=== PATIENT | female | born 1970 | race Two or more races ===

== ENCOUNTER 2024-01-31 11:59 | Emergency (ER) | payer OTHER, SELFPAY ==
[2024-01-31 12:00] VITALS: BMI 21.2
[2024-01-31 12:02] VITALS: BP 141/95
--- NOTE | 2024-01-31 12:11 | ED.GENMED ---
History of Present Illness
General
Chief Complaint: Chest Pain
Source: patient
Exam Limitations: none
Time Seen by Provider: 01/31/24 12:09
Nursing documentation reviewed up to this point in time: agreed with
Travel History
Have you had any contact with someone who has COVID-19?: No
Do you have any symptoms of coronavirus? Fever > 100 degrees, chills, cough, shortness of breath, sore throat, loss of taste or smell, muscle aches, or headache?: No
History of Present Illness
History of Present Illness:
54 yo female with hx hypertropic cardiomyopathy (mild septal hypertrophy on her last echocardiogram), presents stating:
She tested Covid + 9 days ago when she had fever 102, aches, congestion started same day. Took Paxlovid, finished it 4 days ago. [place] better then, started walking her usual 2 miles a day, going to gym, etc.
Two days ago started feeling fatigued but continued her activities
Yesterday again, intermittent fatigue associated with fast heart rate on apple watch and pulse ox and mid non radiating chest tightness when doing any activity. HR as high as 115 at time with exertion, HR 50's at rest.
Today emptying armature rewinder HR up to 130 and felt mild SOB with the mid chest pressure.
Saw PCP RESOURCES REPRESENTATIVE in office today, 11 am told her EKG looked different than last one and sent here for eval.
States 'very mild' chest tightness now, no other symptoms.
Denies n/v/abd pain, dizziness, weakness.
Past History
Past History
ED Past Medical History: Other (hypertropic cardiomyopathy)
ED Past Surgical History:
Social History
Tobacco: Non-smoker
Alcohol: None
Personal:
Living: with family
Employment: Employed
Review of Systems
Review of Systems
Allergies reviewed?: Yes
All Other Systems: ROS reviewed and negative except as documented in HPI and ROS
Constitutional: Reports fatigue; Denies fever or chills
EENT: Denies sore throat
Respiratory: Denies cough or trouble breathing (mild SOB at times when HR increases)
Cardiac: Reports chest pain and palpitations (fast HR on apple watch, pulse ox, does not feel palpitations.); Denies diaphoresis or syncope
ABD/GI: Denies abdominal pain, nausea or vomiting
: Denies dysuria, frequency or urgency
Musculoskeletal: Reports no symptoms
Skin: Reports no symptoms
Neurological: Reports no symptoms
Phy Exam
Physical Exam
Physical Exam:
GENERAL: No acute distress. A&Ox3.
CONSTITUTIONAL: Afebrile.
EYES: clear, conjunctivae normal
ENMT: moist mucus membranes, Pharynx nl
RESPIRATORY: Regular respirations, nonlabored, lungs clear.
CARDIOVASCULAR: Regular rate and rhythm, no murmurs, no rubs.
GI: Soft, nontender, normal BS
MUSCULOSKELETAL: Moves with ease. Well perfused.
SKIN: Warm, dry, normal
PSYCH: Normal mood and affect. Well kept, interactive and appropriate
NEUROLOGIC: Awake, alert and oriented. No focal neurological deficits
Scores
Heart Score for Chest Pain Patients
STEMI patient?: Not applicable
Course
Orders/Labs/Results
Orders:
Orders
01/31/24 12:06
Electrocardiogram (*1) Urgent
Reason for Study: Chest Pain
EKG- Treatment ONCE
01/31/24 13:09
Complete Blood Count/With Diff Urgent
Comprehensive Metabolic Panel Urgent
D-Dimer Urgent
Free T4 Urgent
TSH Reflex To Free T4 Urgent
Troponin I Urgent
01/31/24 15:12
CT Chest Pe Study Urgent
Comment:
Reason For Exam: tachycardia, sob on exertion
Abnormal Lab Results
01/31/24
13:09
RBC 5.55 H 10^6/uL
(4.20-5.40)
Hgb 16.9 H g/dL
(12.0-16.0)
RDW 11.3 L %
(11.5-14.5)
Abs Immat Gran (auto) 0.1 H 10^3/uL
(0-0.05)
Immature Gran % 0.7 H %
(0-0.5)
Lymphocytes % 19.6 L %
(20.5-51.1)
Sodium 126 L mmol/L
(135-145)
Chloride 97 L mmol/L
(98-107)
Carbon Dioxide 21 L mmol/L
(22-30)
Glucose 101 H mg/dl
(70-99)
Calcium 11.0 H mg/dl
(8.4-10.2)
Total Protein 8.9 H g/dl
(6.3-8.2)
Albumin 5.1 H g/dl
(3.5-5.0)
TSH (Reflex) 0.36 L uIU/ml
(0.47-4.68)
01/31/24 13:09
01/31/24 13:09
Vital Signs
Initial and Last Documented VS:
Initial Vital Signs
Temp Pulse Resp BP Pulse Ox
98.9 F 103 16 141/95 98
01/31/24 12:02 01/31/24 12:02 01/31/24 12:02 01/31/24 12:02 01/31/24 12:02
Last Documented Vital Signs
Temp Pulse Resp BP Pulse Ox
98.9 F 90 18 120/64 97
01/31/24 12:02 01/31/24 18:11 01/31/24 18:11 01/31/24 18:11 01/31/24 18:11
MDM/Problems Addressed
Differential Diagnosis Includes:
ACS, hyperthyroidism, pericarditis
MDM/Problems Addressed:
54 yo female with hx hypertropic cardiomyopathy (mild septal hypertrophy on her last echocardiogram), presents stating:
She tested Covid + 9 days ago when she had fever 102, aches, congestion started same day. Took Paxlovid, finished it 4 days ago. [place] better then, started walking her usual 2 miles a day, going to gym, etc.
Two days ago started feeling fatigued but continued her activities
Yesterday again, intermittent fatigue associated with fast heart rate on apple watch and pulse ox and mid non radiating chest tightness when doing any activity. HR as high as 115 at time with exertion, HR 50's at rest.
Today emptying armature rewinder HR up to 130 and felt mild SOB with the mid chest pressure.
Saw PCP RESOURCES REPRESENTATIVE in office today, 11 am told her EKG looked different than last one and sent here for eval.
States 'very mild' chest tightness now, no other symptoms.
Denies n/v/abd pain, dizziness, weakness.
Denies positional changes changing the chest tightness
Patient has had multiple (7) echocardiograms since 10/2013 for reported abnormal EKGs, two echos prior to her having Covid and 5 echos this year since having Covid
Last echocardiogram of 05/20/2021 with EF 60 to 70%, mild septal hypertrophy which was new since the echo of 08/2020 otherwise no significant change
Followed by [facility] Dr. Gibson.
Cardiology here Dr. Stoner.
1:41 PM
CBC: No clinically significant abnormality
CMP: Sodium 126 otherwise no clinically significant abnormality
Troponin normal
D dimer normal
TSH low 0.36 (0.47-4.68)
T4 normal
3:15 PM
Case discussed with Dr. Pak
IVFs for hyponatremia, fluid depletion, tachycardia
Pt drank 500 ml fluid while here.
Now, resting, HR 70
[address] on monitor HR remained 80's to 100. Pt asymptomatic otherwise.
Discussed chest CT for PE and pt wishes to have this done (she was speaking with her cousin, a radiologist who suggested this)
6:19 PM
Patient's hyponatremia is most likely due to the spironolactone she takes. She is instructed to follow-up with her PCP and have her sodium rechecked in 1 week as well as discuss TSH low level
Do not suspect ACS, with her cardiac history, Referred to chest pain hotline
Chest CT PE study is negative
HR 66 at rest, pt stable for discharge
Chronic conditions affecting care: Cardiomyopathy
*Pulse Oximetry
Patient hypoxic: no
*EKG
EKG Intrepretation Date: 01/31/24
Rate: normal
Rhythm: sinus and PVC's
[place]: left axis deviation
Interval: normal interval
QRS Pattern: normal QRS
Ischemia: no ischemia
*Critical Care Note
Total Time (30-74mins, 75-104mins- exclusive of procedures): Not Applicable
ED Attending Note
-
Portions of this chart may have been created with voice recognition software.� Occasional wrong word or��sound alike� substitutions may have occurred due to the inherent limitations of voice recognition software.
Discharge Plan
Departure
Patient Disposition: Home (Routine Discharge)
Date of Disposition: 01/31/24
Time of Disposition: 18:20
Patient with high blood pressure during this ER visit?: No
Condition: Good
Discharge Problem:
Atypical chest pain, Elevated TSH, Hyponatremia
Instructions: Hyponatremia, Chest Pain CBC Follow Up
Referrals:
Phoebe Pro DO [Family Provider] - Call in 1-3 days for appt
Activity Restrictions/Additional Instructions:
As we discussed, your chest CAT scan shows no pulmonary embolism or any other worrisome abnormality.
Your sodium level is low, we gave you normal saline intravenously which should help. See your family doctor within the next week to discuss your sodium level as it may be low due to your Spironolactone. You should have your sodium level repeated
next week.
Also speak to your family doctor about your low TSH level.
Someone from the cardiology group will call you within 48 hours to make an appointment for a more thorough cardiac evaluation.
Interventions
Interventions:
*Risk Screen - Suicide Last Done: 01/31/24 12:50
*General Assessment Last Done: 01/31/24 12:50
*Neglect/Abuse Screening Last Done: 01/31/24 12:50
*ED COVID-19 Vaccine History Last Done: 01/31/24 12:02
*Nursing Disposition Last Done: 01/31/24 18:46
ED- Cardiac Assessment Last Done: 01/31/24 12:50
Discharge Date and Time
Discharge Date/Time: 01/31/24 18:46
Print Language: M[place]
[2024-01-31 13:20] LABS: % Basophils 0.4 % (0-2); % Eosinophils 0.4 % (0-6); % Immature Granulocytes 0.7 % (0-0.5); % Lymphocytes 19.6 % (20.5-51.1); % Monocytes 4.3 % (1.7-9.3); % Neutrophils 74.6 % (42.2-75.2); Absolute Immature Granulocytes 0.1 10^3/uL (0-0.05); Absolute Lymphocytes 1.4 10^3/uL (1.2-3.4); Absolute Monocytes 0.3 10^3/uL (0.1-0.6); Absolute Neutrophils 5.4 10^3/uL (1.4-6.5); Hematocrit 46.5 % (37.0-47.0); Hemoglobin 16.9 g/dL (12.0-16.0); Mean Corp Hgb Conc. 36.3 g/dL (33.0-37.0); Mean Corpuscular Hgb 30.5 pg (27.0-31.0); Mean Corpuscular Volume 83.8 fL (81.0-99.0); Mean Platelet Volume 8.5 fL (7.4-10.4); Nucleated Red Blood Cells % 0 %; Platelet Count 350 10^3/uL (130-400); Red Blood Cell Count 5.55 10^6/uL (4.20-5.40); Red Cell Dist. Width 11.3 % (11.5-14.5); White Blood Cell Count 7.2 10^3/uL (4.8-10.8)
[2024-01-31 13:35] LABS: ALT (SGPT) 28 U/L (0-35); AST (SGOT) 36 U/L (14-36); Albumin 5.1 g/dl (3.5-5.0); Alkaline Phosphatase 82 U/L (38-126); Blood Urea Nitrogen 16 mg/dl (7-17); Carbon Dioxide 21 mmol/L (22-30); Chloride 97 mmol/L (98-107); Glucose 101 mg/dl (70-99); Sodium 126 mmol/L (135-145); Total Protein 8.9 g/dl (6.3-8.2); eGFR > 60.00
[2024-01-31 13:36] LABS: D-Dimer < 0.27 ug/mlFEU (0.00-0.50)
[2024-01-31 13:46] LABS: Troponin I < 0.012 ng/ml
[2024-01-31 14:05] LABS: TSH Reflex To Free T4 0.36 uIU/ml (0.47-4.68)
[2024-01-31 14:52] LABS: Free T4 1.25 ng/dl (0.78-2.19)
[2024-01-31 15:23] VITALS: BP 118/69
[2024-01-31 18:11] VITALS: BP 120/64
== END 2024-01-31 18:46 | disposition home or self-care (01) ==
LOC: EMR 11:59
PROVIDERS: Registered Nurse; EMERGENCY PHYSICIAN Student in an Organized Health Care Education/Training Program; FAMILY PHYSICIAN Family Medicine
DX: R07.89 Other chest pain (principal); R74.01 Elevation of levels of liver transaminase levels; E87.1 Hypo-osmolality and hyponatremia; I42.9 Cardiomyopathy, unspecified
CPT/HCPCS: 99285; 71275; 80053; 84439; 84443; 84484; 85025; 85379; 93005; Q9967

== ENCOUNTER → 2024-02-01 15:24 | Outpatient (REF) | payer OTHER, SELFPAY | LOC: RCS 15:24 | PROVIDERS: ATTENDING PHYSICIAN Internal Medicine Cardiovascular Disease; FAMILY PHYSICIAN Family Medicine; REFERRING PHYSICIAN Internal Medicine Cardiovascular Disease | DX: R07.89 Other chest pain (principal); I42.1 Obstructive hypertrophic cardiomyopathy; I42.2 Other hypertrophic cardiomyopathy; U07.1 COVID-19 | CPT/HCPCS: 93306 ==